=== PATIENT | male | born 1945 | race Caucasian/White ===

== ENCOUNTER 2017-08-03 01:37 | Inpatient (IN) | payer MEDICARE, OTHER ==
[~2017-08-03] VITALS: Ht 175.3 cm; Wt 63.0 kg
[~2017-08-03 01:37] MED LIST: ALBU8.5H8 IH; ALLO100T PO; AMIO200T57 PO; ASPI-611 PO; CARV6.252 PO; FLUT1DIS4 INH; FURO40TA4 PO; IPRA3AMP9 NEB; LISI10TA4 PO; MAGN400C PO; POTA20TA19 PO; RANI150C4 PO
[2017-08-03] MEDS ORDERED: methylPREDNISolone sod succ 125mg/2ml vial IV ONE (02:15)
[2017-08-03] MEDS ORDERED: albuterol 2.5 MG/3 ML nebule CONTNEB PRN (02:15)
[2017-08-03 02:36] LABS: BASOPHILS % (AUTO) 0.2 % (0-1); EOSINOPHILS # (AUTO) 0.2 X10'3 (0-0.9); EOSINOPHILS % (AUTO) 4.4 % (0-6); HEMATOCRIT 36.4 % (42.0-52.0); HEMOGLOBIN 12.7 g/dl (14.0-17.9); LYMPHOCYTES # (AUTO) 0.7 X10'3 (1.1-4.8); LYMPHOCYTES % (AUTO) 14.7 % (21-51); MEAN CORPUSCULAR HGB CONC 34.8 % (33.0-36.5); MEAN CORPUSCULAR VOLUME 100.4 FL (78-98); MEAN PLATELET VOLUME 7.6 FL (7.4-10.4); MONOCYTES # (AUTO) 0.5 X10'3 (0-0.9); MONOCYTES % (AUTO) 9.5 % (2-12); NEUTROPHILS # (AUTO) 3.4 X10'3 (1.8-7.7); NEUTROPHILS % (AUTO) 71.2 % (42-75); PLATELET COUNT 160 X10'3 (140-440); RED BLOOD COUNT 3.63 X10'6 (4.70-6.10); RED CELL DISTRIBUTION WIDTH 14.2 % (11.5-14.5); WHITE BLOOD COUNT 4.8 X10'3 (4.5-11.0)
[2017-08-03 02:45] LABS: INR 1.9 INR; PARTIAL THROMBOPLASTIN TIME 37 SECONDS (22-32); PROTHROMBIN TIME 19.7 SECONDS (9.0-12.0)
[2017-08-03 02:58] LABS: ALANINE AMINOTRANSFERASE 30 U/L (12-78); ALBUMIN/GLOBULIN RATIO 0.9 (1.1-1.5); ALKALINE PHOSPHATASE 186 IU/L (46-116); ANION GAP 8 (8-16); ASPARTATE AMINO TRANSFERASE 60 U/L (10-37); BILIRUBIN,TOTAL 0.6 MG/DL (0.1-1.0); BLOOD UREA NITROGEN 16 MG/DL (7-18); BUN/CREATININE RATIO 12.6 (5.4-32.0); CALCIUM 8.5 MG/DL (8.5-10.1); CHLORIDE 101 MMOL/L (99-107); CREATININE 1.27 MG/DL (0.60-1.10); GLUCOSE 95 MG/DL (70-104); POTASSIUM 4.3 MMOL/L (3.5-5.1); SODIUM 135 MMOL/L (135-145); TOTAL CARBON DIOXIDE 26.2 MMOL/L (24-32); TOTAL PROTEIN 6.4 G/DL (6.4-8.2); eGFR 55 ML/MIN
[2017-08-03] MEDS ORDERED: MAGN250T2 PO (03:39)
[2017-08-03] MEDS ORDERED: COU1T PO ×2 (03:39→17:38)
[2017-08-03] MEDS ORDERED: ALBU18HF2 INH (03:39)
[2017-08-03] MEDS ORDERED: CARV6.253 PO (03:39)
[2017-08-03] MEDS ORDERED: RANI150T8 PO (03:39)
[2017-08-03] MEDS ORDERED: AMIO200T57 PO (03:39)
[2017-08-03] MEDS ORDERED: mag hydrox/Alum hydrox/simeth 30ml oral suspension PO PRN (04:10)
[2017-08-03] MEDS ORDERED: ipratropium/albuterol 3ml nebule NEB PRN (04:10)
[2017-08-03] MEDS ORDERED: magnesium hydroxide 30ml (MOM) UD suspension PO PRN (04:10)
[2017-08-03] MEDS ORDERED: acetaminophen 325mg tablet PO PRN ×2 (04:10)
[2017-08-03] MEDS ORDERED: ondansetron/PF 4mg/2ml inj IV PRN (04:10)
[2017-08-03] MEDS ORDERED: famotidine 20mg tablet PO ONE (04:30)
[2017-08-03] MEDS: lisinopril 10 MG tablet PO SCH (07:36)
[2017-08-03] MEDS: methylPREDNISolone sod succ 125mg/2ml vial IV SCH ×3 (07:36→23:58)
[2017-08-03] MEDS: carvedilol 6.25mg tablet PO SCH ×2 (07:36→20:27)
[2017-08-03] MEDS: amiodarone 200mg tablet PO SCH (07:37)
[2017-08-03] MEDS: allopurinol 100mg tablet PO SCH (10:09)
[2017-08-03 12:00] VITALS: BP_SYST 186
[2017-08-03] MEDS ORDERED: HYDROcodone/acetaminophen 5mg/325mg tablet PO PRN (16:45)
[2017-08-03] MEDS ORDERED: LEVO50TA8 (17:36)
[2017-08-03] MEDS ORDERED: WARF1TAB83 (17:38)
[2017-08-03 18:00] VITALS: BP 185/75
[2017-08-03] MEDS: ipratropium/albuterol 3ml nebule NEB SCH ×2 (19:29→23:00)
[2017-08-03] MEDS: LIDOcaine 5% patch TP SCH (20:27)
[2017-08-03] MEDS ORDERED: warfarin 1mg tablet PO ONE (21:00)
[2017-08-04] VITALS (7 sets, daily range): BP systolic 157–180; BP diastolic 61–77
[2017-08-04] MEDS: ipratropium/albuterol 3ml nebule NEB SCH ×5 (03:00→19:04)
[2017-08-04 06:06] LABS: BASOPHILS % (AUTO) 0.3 % (0-1); HEMATOCRIT 33.2 % (42.0-52.0); HEMOGLOBIN 11.4 g/dl (14.0-17.9); LYMPHOCYTES # (AUTO) 0.4 X10'3 (1.1-4.8); LYMPHOCYTES % (AUTO) 7.3 % (21-51); MEAN CORPUSCULAR HEMOGLOBIN 34.5 PG (27.0-31.0); MEAN CORPUSCULAR HGB CONC 34.4 % (33.0-36.5); MEAN CORPUSCULAR VOLUME 100.4 FL (78-98); MEAN PLATELET VOLUME 8.1 FL (7.4-10.4); MONOCYTES # (AUTO) 0.1 X10'3 (0-0.9); NEUTROPHILS # (AUTO) 4.3 X10'3 (1.8-7.7); NEUTROPHILS % (AUTO) 88.4 % (42-75); PLATELET COUNT 142 X10'3 (140-440); RED BLOOD COUNT 3.31 X10'6 (4.70-6.10); RED CELL DISTRIBUTION WIDTH 13.8 % (11.5-14.5); WHITE BLOOD COUNT 4.8 X10'3 (4.5-11.0)
[2017-08-04 06:17] LABS: INR 1.9 INR; PROTHROMBIN TIME 19.1 SECONDS (9.0-12.0)
[2017-08-04 06:44] LABS: ALBUMIN 2.7 G/DL (3.4-5.0); ANION GAP 8 (8-16); BLOOD UREA NITROGEN 27 MG/DL (7-18); BUN/CREATININE RATIO 19.7 (5.4-32.0); CALCIUM 8.4 MG/DL (8.5-10.1); CHLORIDE 102 MMOL/L (99-107); CREATININE 1.37 MG/DL (0.60-1.10); GLUCOSE 142 MG/DL (70-104); POTASSIUM 4.9 MMOL/L (3.5-5.1); SODIUM 135 MMOL/L (135-145); TOTAL CARBON DIOXIDE 25.1 MMOL/L (24-32); eGFR 51 ML/MIN
[2017-08-04] MEDS ORDERED: pantoprazole 40mg Tablet.DR PO SCH (07:30)
[2017-08-04] MEDS: LIDOcaine 5% patch TP SCH (09:02)
[2017-08-04] MEDS: methylPREDNISolone sod succ 125mg/2ml vial IV SCH ×2 (09:02→16:21)
[2017-08-04] MEDS: lisinopril 10 MG tablet PO SCH (09:03)
[2017-08-04] MEDS: carvedilol 6.25mg tablet PO SCH ×2 (09:03→18:11)
[2017-08-04] MEDS: amiodarone 200mg tablet PO SCH (09:04)
[2017-08-04] MEDS: allopurinol 100mg tablet PO SCH (09:04)
[2017-08-04] MEDS ORDERED: lisinopril 10 MG tablet PO ONE (13:00)
[2017-08-04] MEDS ORDERED: CEPH500C5 PO (13:09)
[2017-08-04] MEDS ORDERED: PRED10TA23 PO (13:09)
[2017-08-04] MEDS: cephalexin 500mg capsule PO SCH ×2 (14:22→16:00)
[2017-08-04] MEDS ORDERED: warfarin 1mg tablet PO ONE (21:00)
== END 2017-08-04 19:45 | disposition home health service (06) | DRG 189 ==
LOC: ER 01:37 → ED HOLD 04:07 → SUR 3N 12:00
PROVIDERS: ADMIT Internal Medicine; ATTEND Internal Medicine
DX: J96.00 Acute respiratory failure, unspecified whether with hypoxia or hypercapnia (principal); I48.91 Unspecified atrial fibrillation; Z99.81 Dependence on supplemental oxygen; J44.0 Chronic obstructive pulmonary disease with (acute) lower respiratory infection; J44.1 Chronic obstructive pulmonary disease with (acute) exacerbation; S22.32XA Fracture of one rib, left side, initial encounter for closed fracture; J20.9 Acute bronchitis, unspecified; I10 Essential (primary) hypertension; I25.10 Atherosclerotic heart disease of native coronary artery without angina pectoris; F17.200 Nicotine dependence, unspecified, uncomplicated; W10.9XXA Fall (on) (from) unspecified stairs and steps, initial encounter; Z60.2 Problems related to living alone; Z95.1 Presence of aortocoronary bypass graft; Z90.79 Acquired absence of other genital organ(s); Z79.01 Long term (current) use of anticoagulants; Z79.899 Other long term (current) drug therapy; Z92.3 Personal history of irradiation; Z85.46 Personal history of malignant neoplasm of prostate; Y93.89 Activity, other specified; Y92.89 Other specified places as the place of occurrence of the external cause; Y99.8 Other external cause status; Z71.6 Tobacco abuse counseling
CPT/HCPCS: 36415; 70450; 71045; 71100; 80048; 80053; 83605; 83880; 84484; 85025; 85610; 85730; 87040; 87070; 93306; 94640; 94760; 97116; 97162; 97530; J2930

== ENCOUNTER 2017-08-23 13:03 | Emergency (ER) | payer MEDICARE, OTHER ==
[~2017-08-23] VITALS: Ht 177.8 cm; Wt 62.7 kg
[~2017-08-23 13:03] MED LIST changes: +ALBU18HF2 INH; -ALBU8.5H8 IH; -ASPI-611 PO; -CARV6.252 PO; +CARV6.253 PO; +CEPH500C5 PO; +COU1T PO; -FURO40TA4 PO; -IPRA3AMP9 NEB; +LEVO50TA8; +MAGN250T2 PO; -MAGN400C PO; -POTA20TA19 PO; +PRED10TA23 PO; -RANI150C4 PO; +RANI150T8 PO
[2017-08-23 13:17] VITALS: BP 196/72
[2017-08-23 13:42] LABS: BASOPHILS % (AUTO) 0.4 % (0-1); EOSINOPHILS # (AUTO) 0.2 X10'3 (0-0.9); EOSINOPHILS % (AUTO) 3.4 % (0-6); HEMATOCRIT 32.7 % (42.0-52.0); HEMOGLOBIN 11.1 g/dl (14.0-17.9); LYMPHOCYTES # (AUTO) 0.7 X10'3 (1.1-4.8); LYMPHOCYTES % (AUTO) 12.6 % (21-51); MEAN CORPUSCULAR HEMOGLOBIN 33.9 PG (27.0-31.0); MEAN CORPUSCULAR HGB CONC 33.9 % (33.0-36.5); MEAN CORPUSCULAR VOLUME 99.9 FL (78-98); MEAN PLATELET VOLUME 7.6 FL (7.4-10.4); MONOCYTES # (AUTO) 0.5 X10'3 (0-0.9); NEUTROPHILS % (AUTO) 74.6 % (42-75); PLATELET COUNT 202 X10'3 (140-440); RED BLOOD COUNT 3.27 X10'6 (4.70-6.10); RED CELL DISTRIBUTION WIDTH 14.1 % (11.5-14.5); WHITE BLOOD COUNT 5.4 X10'3 (4.5-11.0)
[2017-08-23 13:50] LABS: INR 1.6 INR; PROTHROMBIN TIME 15.9 SECONDS (9.0-12.0)
[2017-08-23 13:59] LABS: ALANINE AMINOTRANSFERASE 31 U/L (12-78); ALBUMIN 2.9 G/DL (3.4-5.0); ALBUMIN/GLOBULIN RATIO 0.9 (1.1-1.5); ALKALINE PHOSPHATASE 196 IU/L (46-116); ANION GAP 8 (8-16); ASPARTATE AMINO TRANSFERASE 50 U/L (10-37); BILIRUBIN,TOTAL 0.8 MG/DL (0.1-1.0); BLOOD UREA NITROGEN 18 MG/DL (7-18); BUN/CREATININE RATIO 13.7 (5.4-32.0); CALCIUM 8.4 MG/DL (8.5-10.1); CHLORIDE 103 MMOL/L (99-107); CREATININE 1.31 MG/DL (0.60-1.10); GLUCOSE 87 MG/DL (70-104); POTASSIUM 4.6 MMOL/L (3.5-5.1); SODIUM 138 MMOL/L (135-145); TOTAL CARBON DIOXIDE 26.7 MMOL/L (24-32); TOTAL PROTEIN 6.1 G/DL (6.4-8.2); eGFR 53 ML/MIN
[2017-08-23] MEDS ORDERED: cephalexin 500mg capsule PO ONE (15:00)
[2017-08-23] MEDS ORDERED: CEPH500C5 PO (15:00)
== END 2017-08-23 15:10 | disposition home or self-care (01) ==
LOC: ER 13:04
DX: S61.412A Laceration without foreign body of left hand, initial encounter (principal); I25.10 Atherosclerotic heart disease of native coronary artery without angina pectoris; I10 Essential (primary) hypertension; I25.2 Old myocardial infarction; J44.9 Chronic obstructive pulmonary disease, unspecified; I48.91 Unspecified atrial fibrillation; Z60.2 Problems related to living alone; Z79.899 Other long term (current) drug therapy; W01.0XXA Fall on same level from slipping, tripping and stumbling without subsequent striking against object, initial encounter; Y93.01 Activity, walking, marching and hiking; Y92.89 Other specified places as the place of occurrence of the external cause; Y99.8 Other external cause status
CPT/HCPCS: 36415; 71045; 73110; 73130; 80053; 85025; 85610; 93005; 99285; A6223; A6255; A6449

== ENCOUNTER 2017-12-23 20:42 | Inpatient (IN) | payer MEDICARE, OTHER ==
[~2017-12-23] VITALS: Ht 179.1 cm; Wt 130.5 kg
[~2017-12-23 20:42] MED LIST changes: +AMIO200T40 PO; -AMIO200T57 PO; -PRED10TA23 PO
[2017-12-23 21:20] LABS: BASOPHILS # (AUTO) 0.1 X10'3 (0-0.2); BASOPHILS % (AUTO) 0.9 % (0-1); EOSINOPHILS # (AUTO) 0.7 X10'3 (0-0.9); HEMATOCRIT 37.8 % (42.0-52.0); HEMOGLOBIN 12.8 g/dl (14.0-17.9); LYMPHOCYTES # (AUTO) 1.4 X10'3 (1.1-4.8); LYMPHOCYTES % (AUTO) 16.1 % (21-51); MEAN CORPUSCULAR HEMOGLOBIN 34.1 PG (27.0-31.0); MEAN CORPUSCULAR HGB CONC 33.8 % (33.0-36.5); MEAN CORPUSCULAR VOLUME 100.9 FL (78-98); MEAN PLATELET VOLUME 7.2 FL (7.4-10.4); MONOCYTES # (AUTO) 0.7 X10'3 (0-0.9); MONOCYTES % (AUTO) 7.9 % (2-12); NEUTROPHILS # (AUTO) 5.9 X10'3 (1.8-7.7); NEUTROPHILS % (AUTO) 67.1 % (42-75); PLATELET COUNT 217 X10'3 (140-440); RED BLOOD COUNT 3.75 X10'6 (4.70-6.10); WHITE BLOOD COUNT 8.8 X10'3 (4.5-11.0)
[2017-12-23 21:33] LABS: INR 1.4 INR; PARTIAL THROMBOPLASTIN TIME 29 SECONDS (22-32); PROTHROMBIN TIME 14.3 SECONDS (9.0-12.0)
[2017-12-23 21:43] LABS: ALANINE AMINOTRANSFERASE 24 U/L (12-78); ALBUMIN 3.2 G/DL (3.4-5.0); ALKALINE PHOSPHATASE 136 IU/L (46-116); ANION GAP 11 (8-16); ASPARTATE AMINO TRANSFERASE 48 U/L (10-37); BILIRUBIN,TOTAL 1.1 MG/DL (0.1-1.0); BLOOD UREA NITROGEN 16 MG/DL (7-18); BUN/CREATININE RATIO 14.3 (5.4-32.0); CALCIUM 8.7 MG/DL (8.5-10.1); CHLORIDE 100 MMOL/L (99-107); CREATININE 1.12 MG/DL (0.60-1.10); GLUCOSE 105 MG/DL (70-104); SODIUM 136 MMOL/L (135-145); TOTAL CARBON DIOXIDE 24.9 MMOL/L (24-32); TOTAL PROTEIN 6.3 G/DL (6.4-8.2); eGFR 64 ML/MIN
[2017-12-23] MEDS ORDERED: albuterol 2.5 MG/3 ML nebule CONTNEB PRN (22:15)
[2017-12-23] MEDS ORDERED: methylPREDNISolone sod succ 125mg/2ml vial IV ONE (22:15)
[2017-12-24] MEDS ORDERED: LEVO75TA PO (00:15)
[2017-12-24] MEDS ORDERED: COU1T PO (00:20)
[2017-12-24] MEDS ORDERED: enalaprilat dihydrate 2.5mg/2ml vial IV ONE (01:00)
[2017-12-24] MEDS ORDERED: albuterol 2.5 MG/3 ML nebule NEB PRN (01:00)
[2017-12-24] MEDS ORDERED: acetaminophen 325mg tablet PO PRN (01:05)
[2017-12-24] MEDS ORDERED: morphine 2 MG/ML inj. syringe IV PRN ×2 (01:05)
[2017-12-24] MEDS ORDERED: ondansetron/PF 4mg/2ml inj IV PRN (01:05)
[2017-12-24] MEDS ORDERED: cloNIDine 0.1 MG/24 HOUR patch (7 day patch) TD SCH (01:05)
[2017-12-24] MEDS ORDERED: bisacodyl 10mg suppository rectal RC PRN (01:05)
[2017-12-24] MEDS ORDERED: cyclobenzaprine 10mg tablet PO PRN (01:05)
[2017-12-24] MEDS ORDERED: metoclopramide 5 mg/ml inj IV PRN (01:05)
[2017-12-24] MEDS ORDERED: haloperidol lactate 5mg/ml inj IM PRN (01:05)
[2017-12-24] MEDS ORDERED: magnesium hydroxide 30ml (MOM) UD suspension PO PRN (01:05)
[2017-12-24] MEDS ORDERED: diphenhydrAMINE 25mg capsule PO PRN (01:05)
[2017-12-24] MEDS ORDERED: dextrose 50%-water 50ml dispensing syringe IV PRN (01:05)
[2017-12-24] MEDS ORDERED: HYDROmorphone 1 mg/ml syringe IV PRN ×2 (01:05)
[2017-12-24] MEDS ORDERED: acetaminophen 650mg rectal suppository RC PRN (01:05)
[2017-12-24] MEDS ORDERED: LORazepam 1 MG tablet PO PRN (01:05)
[2017-12-24] MEDS ORDERED: HYDROcodone/acetaminophen 5mg/325mg tablet PO PRN (01:05)
[2017-12-24] MEDS ORDERED: loperamide 2mg capsule PO PRN (01:05)
[2017-12-24] MEDS ORDERED: mag hydrox/Alum hydrox/simeth 30ml oral suspension PO PRN ×2 (01:05)
[2017-12-24] MEDS ORDERED: diphenhydrAMINE 50 mg/ml inj IV PRN (01:05)
[2017-12-24] MEDS ORDERED: HYDROcodone/acetaminophen 10/325mg tab PO PRN (01:05)
[2017-12-24] MEDS ORDERED: dicyclomine 10 MG capsule PO PRN (01:05)
[2017-12-24] MEDS: normal saline 1000ml 1,000 ML IV SCH (01:36)
[2017-12-24] MEDS: albuterol 2.5 MG/3 ML nebule NEB SCH ×6 (03:27→23:13)
[2017-12-24] MEDS: CefTRIAXone/D5W-Rocephin 1gm 50 ML IV SCH ×2 (03:58→15:57)
[2017-12-24] MEDS: levoTHYROXINE 75mcg tablet PO SCH (07:36)
[2017-12-24] MEDS: azithromycin/NS 500mg/250ml 250 ML IV SCH (07:42)
[2017-12-24] MEDS: nicotine 21mg patch - 24 hr TD SCH (08:00)
[2017-12-24] MEDS: folic acid inj. 2 MG, thiamine inj. 100 MG, MVI, adult No.4 with vit. K 10 ML in dextro... IV SCH ×4 (09:03)
[2017-12-24] MEDS: docusate sod 100mg capsule PO SCH ×2 (09:03→20:24)
[2017-12-24] MEDS: carvedilol 6.25mg tablet PO SCH ×2 (09:03→20:00)
[2017-12-24] MEDS: lisinopril 10 MG tablet PO SCH (09:03)
[2017-12-24] MEDS: heparin, porcine 5000 units/ml vial SQ SCH ×3 (09:03→23:53)
[2017-12-24] MEDS: methylPREDNISolone sod succ 125mg/2ml vial IV SCH ×3 (09:03→23:53)
[2017-12-24] MEDS: amiodarone 200mg tablet PO SCH (09:03)
[2017-12-24] MEDS: famotidine 20mg tablet PO SCH ×2 (09:03→20:24)
[2017-12-24 09:12] LABS: HEMOGLOBIN A1C 4.5 % (4.5-6.2)
[2017-12-24 09:18] LABS: ALANINE AMINOTRANSFERASE 18 U/L (12-78); ALBUMIN 3.1 G/DL (3.4-5.0); ALBUMIN/GLOBULIN RATIO 0.9 (1.1-1.5); ALKALINE PHOSPHATASE 134 IU/L (46-116); ASPARTATE AMINO TRANSFERASE 42 U/L (10-37); BILIRUBIN,DIRECT 0.3 MG/DL (0-0.3); BILIRUBIN,TOTAL 0.7 MG/DL (0.1-1.0); MAGNESIUM 1.3 MG/DL (1.5-2.4); PHOSPHORUS 4.5 MG/DL (2.3-4.5); TOTAL PROTEIN 6.4 G/DL (6.4-8.2)
[2017-12-24] MEDS: allopurinol 100mg tablet PO SCH (10:04)
[2017-12-24] MEDS ORDERED: magnesium 4gm in 100ml NS 100 ML IV PRN (12:55)
[2017-12-24] MEDS ORDERED: magnesium 1gm/100ml D5W IVPB 100 ML IV PRN (12:55)
[2017-12-24] MEDS ORDERED: magnesium Cl slow-release 64mg tablet PO PRN (12:55)
[2017-12-24] MEDS ORDERED: potassium Cl 20 mEq SR tablet PO PRN ×2 (12:55)
[2017-12-24] MEDS ORDERED: potassium Cl 40MEQ/NS 500ml 500 ML IV PRN ×2 (12:55)
[2017-12-24 13:22] VITALS: BP 175/70
[2017-12-24 15:00] VITALS: BP 158/68
[2017-12-24 18:00] VITALS: BP 152/64
[2017-12-24] MEDS: lactobacillus rhamnosus 10,000 MMU CELLS/CAPSULE PO SCH (20:24)
[2017-12-24 23:00] VITALS: BP 158/71
[2017-12-25] VITALS (7 sets, daily range): BP systolic 150–182; BP diastolic 59–83
[2017-12-25] MEDS: CefTRIAXone/D5W-Rocephin 1gm 50 ML IV SCH ×2 (02:49→15:13)
[2017-12-25] MEDS: albuterol 2.5 MG/3 ML nebule NEB SCH ×6 (02:49→22:49)
[2017-12-25 04:18] LABS: BASOPHILS % (AUTO) 0.1 % (0-1); EOSINOPHILS % (AUTO) 0.8 % (0-6); HEMATOCRIT 31.7 % (42.0-52.0); HEMOGLOBIN 10.7 g/dl (14.0-17.9); LYMPHOCYTES # (AUTO) 0.4 X10'3 (1.1-4.8); LYMPHOCYTES % (AUTO) 8.5 % (21-51); MEAN CORPUSCULAR HEMOGLOBIN 33.8 PG (27.0-31.0); MEAN CORPUSCULAR HGB CONC 33.7 % (33.0-36.5); MEAN CORPUSCULAR VOLUME 100.3 FL (78-98); MEAN PLATELET VOLUME 7.8 FL (7.4-10.4); MONOCYTES # (AUTO) 0.2 X10'3 (0-0.9); MONOCYTES % (AUTO) 3.3 % (2-12); NEUTROPHILS # (AUTO) 4.3 X10'3 (1.8-7.7); NEUTROPHILS % (AUTO) 87.3 % (42-75); PLATELET COUNT 151 X10'3 (140-440); RED BLOOD COUNT 3.16 X10'6 (4.70-6.10); RED CELL DISTRIBUTION WIDTH 16.6 % (11.5-14.5); WHITE BLOOD COUNT 4.9 X10'3 (4.5-11.0)
[2017-12-25 04:33] LABS: ALANINE AMINOTRANSFERASE 17 U/L (12-78); ALBUMIN 2.6 G/DL (3.4-5.0); ALKALINE PHOSPHATASE 112 IU/L (46-116); AMYLASE 40 U/L (25-115); ANION GAP 6 (8-16); ASPARTATE AMINO TRANSFERASE 30 U/L (10-37); BILIRUBIN,TOTAL 0.3 MG/DL (0.1-1.0); BLOOD UREA NITROGEN 29 MG/DL (7-18); BUN/CREATININE RATIO 17.5 (5.4-32.0); CALCIUM 7.8 MG/DL (8.5-10.1); CHLORIDE 101 MMOL/L (99-107); CREATININE 1.66 MG/DL (0.60-1.10); GLUCOSE 157 MG/DL (70-104); MAGNESIUM 1.5 MG/DL (1.5-2.4); POTASSIUM 3.9 MMOL/L (3.5-5.1); SODIUM 135 MMOL/L (135-145); TOTAL CARBON DIOXIDE 27.7 MMOL/L (24-32); TOTAL PROTEIN 5.3 G/DL (6.4-8.2); eGFR 41 ML/MIN
[2017-12-25] MEDS: lactobacillus rhamnosus 10,000 MMU CELLS/CAPSULE PO SCH ×2 (07:48→19:15)
[2017-12-25] MEDS: carvedilol 6.25mg tablet PO SCH ×2 (07:48→19:15)
[2017-12-25] MEDS: lisinopril 10 MG tablet PO SCH (07:49)
[2017-12-25] MEDS: famotidine 20mg tablet PO SCH ×2 (07:49→19:16)
[2017-12-25] MEDS: amiodarone 200mg tablet PO SCH (07:49)
[2017-12-25] MEDS: levoTHYROXINE 75mcg tablet PO SCH (07:49)
[2017-12-25] MEDS: allopurinol 100mg tablet PO SCH (07:50)
[2017-12-25] MEDS: heparin, porcine 5000 units/ml vial SQ SCH ×3 (07:51→23:25)
[2017-12-25] MEDS: methylPREDNISolone sod succ 125mg/2ml vial IV SCH ×3 (07:51→23:24)
[2017-12-25] MEDS: azithromycin/NS 500mg/250ml 250 ML IV SCH (07:53)
[2017-12-25] MEDS: docusate sod 100mg capsule PO SCH ×2 (07:53→19:15)
[2017-12-25] MEDS: K and/or MAG REPLACEMENT MC SCH (08:00)
[2017-12-25] MEDS: nicotine 21mg patch - 24 hr TD SCH (08:00)
[2017-12-25] MEDS: folic acid inj. 2 MG, thiamine inj. 100 MG, MVI, adult No.4 with vit. K 10 ML in dextro... IV SCH ×4 (09:24)
[2017-12-25] MEDS: hydrALAZINE 20mg/ml inj. IV PRN (22:21)
[2017-12-25] MEDS: normal saline 1000ml 1,000 ML IV SCH (23:25)
[2017-12-26] VITALS (7 sets, daily range): BP systolic 137–182; BP diastolic 63–78
[2017-12-26] MEDS: CefTRIAXone/D5W-Rocephin 1gm 50 ML IV SCH ×2 (03:12→15:27)
[2017-12-26] MEDS: albuterol 2.5 MG/3 ML nebule NEB SCH ×6 (04:00→23:38)
[2017-12-26 07:01] LABS: BASOPHILS % (AUTO) 0 % (0-1); EOSINOPHILS % (AUTO) 0 % (0-6); HEMATOCRIT 32.9 % (42.0-52.0); HEMOGLOBIN 11.1 g/dl (14.0-17.9); LYMPHOCYTES # (AUTO) 0.3 X10'3 (1.1-4.8); LYMPHOCYTES % (AUTO) 5.2 % (21-51); MEAN CORPUSCULAR HGB CONC 33.8 % (33.0-36.5); MEAN CORPUSCULAR VOLUME 100.5 FL (78-98); MEAN PLATELET VOLUME 7.8 FL (7.4-10.4); MONOCYTES # (AUTO) 0.2 X10'3 (0-0.9); MONOCYTES % (AUTO) 4.9 % (2-12); NEUTROPHILS # (AUTO) 4.5 X10'3 (1.8-7.7); NEUTROPHILS % (AUTO) 89.9 % (42-75); PLATELET COUNT 160 X10'3 (140-440); RED BLOOD COUNT 3.28 X10'6 (4.70-6.10); RED CELL DISTRIBUTION WIDTH 17.2 % (11.5-14.5)
[2017-12-26 07:19] LABS: ALANINE AMINOTRANSFERASE 27 U/L (12-78); ALBUMIN 2.6 G/DL (3.4-5.0); ALKALINE PHOSPHATASE 124 IU/L (46-116); AMYLASE 50 U/L (25-115); ANION GAP 7 (8-16); ASPARTATE AMINO TRANSFERASE 49 U/L (10-37); BILIRUBIN,TOTAL 0.3 MG/DL (0.1-1.0); BLOOD UREA NITROGEN 31 MG/DL (7-18); BUN/CREATININE RATIO 22.5 (5.4-32.0); CALCIUM 7.7 MG/DL (8.5-10.1); CHLORIDE 103 MMOL/L (99-107); CREATININE 1.38 MG/DL (0.60-1.10); GLUCOSE 126 MG/DL (70-104); MAGNESIUM 1.5 MG/DL (1.5-2.4); POTASSIUM 3.8 MMOL/L (3.5-5.1); SODIUM 137 MMOL/L (135-145); TOTAL CARBON DIOXIDE 27.5 MMOL/L (24-32); TOTAL PROTEIN 5.3 G/DL (6.4-8.2); eGFR 50 ML/MIN
[2017-12-26] MEDS: K and/or MAG REPLACEMENT MC SCH (08:00)
[2017-12-26] MEDS: nicotine 21mg patch - 24 hr TD SCH (08:00)
[2017-12-26] MEDS: thiamine 100mg tablet PO SCH (08:39)
[2017-12-26] MEDS: carvedilol 6.25mg tablet PO SCH ×2 (08:39→20:07)
[2017-12-26] MEDS: amiodarone 200mg tablet PO SCH (08:39)
[2017-12-26] MEDS: lactobacillus rhamnosus 10,000 MMU CELLS/CAPSULE PO SCH ×2 (08:39→20:07)
[2017-12-26] MEDS: multivitamins, therapeutics tablet PO SCH (08:40)
[2017-12-26] MEDS: famotidine 20mg tablet PO SCH ×2 (08:40→20:07)
[2017-12-26] MEDS: folic acid 1mg tablet PO SCH ×2 (08:40→20:07)
[2017-12-26] MEDS: docusate sod 100mg capsule PO SCH ×2 (08:40→20:00)
[2017-12-26] MEDS: lisinopril 10 MG tablet PO SCH (08:40)
[2017-12-26] MEDS: methylPREDNISolone sod succ 125mg/2ml vial IV SCH (08:41)
[2017-12-26] MEDS: azithromycin/NS 500mg/250ml 250 ML IV SCH (08:42)
[2017-12-26] MEDS: heparin, porcine 5000 units/ml vial SQ SCH ×3 (08:55→23:35)
[2017-12-26] MEDS: allopurinol 100mg tablet PO SCH (09:15)
[2017-12-26] MEDS: levoTHYROXINE 75mcg tablet PO SCH (09:15)
[2017-12-26] MEDS: methylPREDNISolone sod succ/PF 40mg inj. IV SCH ×2 (15:28→23:34)
[2017-12-26] MEDS: hydrALAZINE 20mg/ml inj. IV PRN (16:07)
[2017-12-27] MEDS: CefTRIAXone/D5W-Rocephin 1gm 50 ML IV SCH ×2 (02:46→15:00)
[2017-12-27 03:00] VITALS: BP 155/74
[2017-12-27] MEDS: albuterol 2.5 MG/3 ML nebule NEB SCH ×4 (03:36→14:28)
[2017-12-27 05:34] LABS: BASOPHILS % (AUTO) 0 % (0-1); EOSINOPHILS % (AUTO) 0 % (0-6); HEMOGLOBIN 10.5 g/dl (14.0-17.9); LYMPHOCYTES # (AUTO) 0.2 X10'3 (1.1-4.8); LYMPHOCYTES % (AUTO) 6.3 % (21-51); MEAN CORPUSCULAR HEMOGLOBIN 34.1 PG (27.0-31.0); MEAN CORPUSCULAR HGB CONC 33.8 % (33.0-36.5); MEAN CORPUSCULAR VOLUME 100.8 FL (78-98); MEAN PLATELET VOLUME 7.8 FL (7.4-10.4); MONOCYTES # (AUTO) 0.2 X10'3 (0-0.9); MONOCYTES % (AUTO) 5.9 % (2-12); NEUTROPHILS # (AUTO) 3.2 X10'3 (1.8-7.7); NEUTROPHILS % (AUTO) 87.8 % (42-75); PLATELET COUNT 145 X10'3 (140-440); RED BLOOD COUNT 3.08 X10'6 (4.70-6.10); WHITE BLOOD COUNT 3.7 X10'3 (4.5-11.0)
[2017-12-27 06:00] VITALS: BP 153/64
[2017-12-27 06:29] LABS: ALANINE AMINOTRANSFERASE 50 U/L (12-78); ALBUMIN 2.5 G/DL (3.4-5.0); ALKALINE PHOSPHATASE 105 IU/L (46-116); AMYLASE 51 U/L (25-115); ANION GAP 8 (8-16); ASPARTATE AMINO TRANSFERASE 62 U/L (10-37); BILIRUBIN,TOTAL 0.3 MG/DL (0.1-1.0); BLOOD UREA NITROGEN 30 MG/DL (7-18); CALCIUM 7.9 MG/DL (8.5-10.1); CHLORIDE 107 MMOL/L (99-107); CREATININE 1.25 MG/DL (0.60-1.10); GLUCOSE 120 MG/DL (70-104); MAGNESIUM 1.6 MG/DL (1.5-2.4); POTASSIUM 3.7 MMOL/L (3.5-5.1); SODIUM 143 MMOL/L (135-145); TOTAL PROTEIN 5.1 G/DL (6.4-8.2); eGFR 56 ML/MIN
[2017-12-27] MEDS: nicotine 21mg patch - 24 hr TD SCH ×2 (08:00→10:23)
[2017-12-27] MEDS: K and/or MAG REPLACEMENT MC SCH (08:00)
[2017-12-27] MEDS: docusate sod 100mg capsule PO SCH ×2 (08:00→10:26)
[2017-12-27] MEDS: carvedilol 6.25mg tablet PO SCH (10:24)
[2017-12-27] MEDS: lactobacillus rhamnosus 10,000 MMU CELLS/CAPSULE PO SCH (10:24)
[2017-12-27] MEDS: famotidine 20mg tablet PO SCH (10:24)
[2017-12-27] MEDS: levoTHYROXINE 75mcg tablet PO SCH (10:24)
[2017-12-27] MEDS: thiamine 100mg tablet PO SCH (10:24)
[2017-12-27] MEDS: multivitamins, therapeutics tablet PO SCH (10:25)
[2017-12-27] MEDS: amiodarone 200mg tablet PO SCH (10:25)
[2017-12-27] MEDS: azithromycin/NS 500mg/250ml 250 ML IV SCH (10:25)
[2017-12-27] MEDS: lisinopril 10 MG tablet PO SCH (10:25)
[2017-12-27] MEDS: allopurinol 100mg tablet PO SCH (10:25)
[2017-12-27] MEDS: methylPREDNISolone sod succ/PF 40mg inj. IV SCH ×2 (10:29→16:00)
[2017-12-27] MEDS: folic acid 1mg tablet PO SCH (10:29)
[2017-12-27] MEDS: heparin, porcine 5000 units/ml vial SQ SCH ×2 (10:29→16:00)
[2017-12-27] MEDS ORDERED: LEVO500T2 PO (11:34)
[2017-12-27] MEDS ORDERED: PRED10TA23 PO (11:34)
[2017-12-28] MEDS ORDERED: azithromycin 250mg tablet PO SCH (08:00)
== END 2017-12-27 17:10 | disposition home health service (06) | DRG 189 ==
LOC: ER 20:42 → ED HOLD 12-24 01:01 → PCU 3S 12-24 13:02
PROVIDERS: ADMIT Family Medicine; ATTEND Family Medicine
DX: J96.21 Acute and chronic respiratory failure with hypoxia (principal); I16.1 Hypertensive emergency; I50.32 Chronic diastolic (congestive) heart failure; J44.1 Chronic obstructive pulmonary disease with (acute) exacerbation; Z68.41 Body mass index [BMI] 40.0-44.9, adult; J44.0 Chronic obstructive pulmonary disease with (acute) lower respiratory infection; F10.10 Alcohol abuse, uncomplicated; F17.210 Nicotine dependence, cigarettes, uncomplicated; Z60.2 Problems related to living alone; I11.0 Hypertensive heart disease with heart failure; I25.10 Atherosclerotic heart disease of native coronary artery without angina pectoris; I48.91 Unspecified atrial fibrillation; J20.9 Acute bronchitis, unspecified; I25.2 Old myocardial infarction; Z99.81 Dependence on supplemental oxygen; Z95.1 Presence of aortocoronary bypass graft; Z79.01 Long term (current) use of anticoagulants; Z79.899 Other long term (current) drug therapy; Z71.41 Alcohol abuse counseling and surveillance of alcoholic; Z71.6 Tobacco abuse counseling
CPT/HCPCS: 36415; 71045; 80053; 80076; 82150; 83036; 83735; 83880; 84100; 84439; 84443; 84484; 85025; 85610; 85730; 93005; 94640; 94760; 96374; 99285; A4620; A6212; A6213; A6258; J0360; J0456; J0696; J1644; J2920; J2930; J3411; J3490; J7030; J7060